=== PATIENT | female | born 1995 | race Caucasian/White ===

== ENCOUNTER 2018-01-15 11:02 | Emergency (ER) | payer SELFPAY ==
[~2018-01-15] VITALS: Ht 180.3 cm; Wt 106.6 kg
[2018-01-15 12:11] VITALS: BP 139/86
[2018-01-15] MEDS ORDERED: AZITHROMYCIN 250 MG TAB PO ONE (12:15)
[2018-01-15] MEDS ORDERED: CEFTRIAXONE SOD 250 MG VIAL IM ONE (12:15)
== END 2018-01-15 12:16 | disposition home or self-care (01) ==
LOC: FSED 11:02
DX: N89.8 Other specified noninflammatory disorders of vagina (principal)
CPT/HCPCS: 81025; 96372; 99283; J0696